=== PATIENT | male | born 1980 | race African-American/Black ===

== ENCOUNTER 2021-05-11 13:57 | Emergency (ER) | payer OTHER, SELFPAY ==
--- NOTE | ~2021-05-11 | XR_ITS ---
EXAMINATION: XR chest 2V DATE: 05/11/2021 14:33 INDICATION: Dizziness TECHNIQUE: PA and lateral views of the chest were obtained. COMPARISON: None FINDINGS: The lungs are clear with no focal airspace opacities, pulmonary edema, pleural effusion or pneumothor ax. The cardiomediastinal silhouette is normal. 25 degrees thoracic dextroscoliosis. There is anterio r spinal fusion, potentially developmental, at the lower cervical spine. Likely ventricular shunt cat heter tubing projecting from the cephalad margin of the [id number] at the base of the right neck a cross anterior chest which appears to terminate in the inferior anterior chest wall. IMPRESSION: 1. No acute cardiopulmonary disease. Reviewed, dictated and finalized at location [facility]
[2021-05-11 14:03] VITALS: BP 143/83; PULSE 71; RESP 16; TEMP 36.6; O2SAT 100
--- NOTE | 2021-05-11 14:18 | ECG_ITS ---
Measurements Intervals [place] Rate: 55 P: 50 FL: 209 QRS: 54 QRSD: 83 T: 32 QT: 410 QTc: 395 Interpretive Statements SINUS BRADYCARDIA WITH FIRST DEGREE AV BLOCK VOLTAGE CRITERIA FOR LVH ABNORMAL ECG Electronically Signed On 05-11-2021 16:35:37 FIXED ROUTE OPERATOR by Juanito Dennison D.O.
--- NOTE | 2021-05-11 14:32 | ED.DIZZY ---
HPI - Dizziness General Chief Complaint: Dizziness Stated Complaint: dizzy Time Seen by Provider: 05/11/21 14:32 Source: patient Mode of arrival: ambulatory Limitations: no limitations History of Present Illness HPI Narrative: Nilton Toscano is a 40-year-old male with no reported history who comes to 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 He became dizzy did not lose consciousness but felt like he needed to rest and was sent to [facility] for evaluation Patient denies periods of dizziness in the past he states he has a primary care physician but it has been a while since he has been there he is not on any medication; he denies smoking Later in the visit it was found that he also has hydrocephalus by noting the tube on his x-ray Related Data Home Medications Medication Instructions Recorded Confirmed No Home Medications 05/11/21 05/11/21 Allergies Allergy/AdvReac Type Severity Reaction Status Date / Time No Known Allergies Allergy Verified 05/11/21 14:15 Review of Systems Review of Systems: CONSTITUTIONAL: Denies fever, chills, sweats. EYES: Denies visual changes, redness, discharge. ENT: Denies rhinorrhea, congestion, sore throat, otalgia. CARDIOVASCULAR: Denies chest pain, palpitations, edema. RESPIRATORY: Denies dyspnea, wheezing, cough GASTROINTESTINAL: Denies abdominal pain, nausea, vomiting, diarrhea. GENITOURINARY: Denies dysuria, hematuria, abnormal discharge SKIN: Denies rash or itching. NEUROLOGIC: Denies numbness, or focal weakness. Patient states he was dizzy while at work, exerting himself PSYCHIATRIC: Denies anxiety or depression. [facility] Past Medical History Medical History (Updated 05/11/21 @ 15:07 by Blanka Dupree CNP) Hydrocephalus Surgical History Surgical History History of ventriculoperitoneal shunting Social History Social History (Updated 05/11/21 @ 14:35 by Blanka Dupree CNP) Smoking status: Never smoker Alcohol intake: current Comments At time of signature, I agree with nursing past medical, surgical, social and family history. There is no relevant family history pertinent to the presenting complaint. He is hypertensive at this visit and should follow-up with his primary care physician within a week-discussed also follow-up with his shunt donation pressure is consistent Exam Narrative: GENERAL: This is a well-nourished, well-developed patient, in mild distress. HEAD: normocephalic, atraumatic. EYES: Sclera clear/white. Vision is grossly intact. EARS: External ears normal, . Hearing grossly intact. NOSE: External nose normal without nasal discharge, nares without redness, no rhinorrhea. THROAT: Mucous membranes moist, NECK: Neck supple, CARDIOVASCULAR: Bradycardic rate and rhythm without murmurs, gallops, or rubs. RESPIRATORY: Clear to auscultation. Breath sounds equal bilaterally. No wheezes, rales, or rhonchi. GASTROINTESTINAL: Abdomen soft, SKIN: warm, intact with no suspicious lesions or rash, good texture and turgor. NEURO: awake, alert, and oriented to person, place and time. There were no obvious focal neurologic abnormalities. Steady gait EXTREMITIES: Normal range of motion. 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
== END 2021-05-11 15:15 | disposition home or self-care (01) ==
PROVIDERS: Emergency Provider Nurse Practitioner
DX: R42 Dizziness and giddiness (principal); G91.9 Hydrocephalus, unspecified; I44.0 Atrioventricular block, first degree
CPT/HCPCS: 71046; 93005; 99213; G0463